=== PATIENT | female | born 1965 | race African-American/Black ===

== ENCOUNTER 2018-06-02 15:20 | Emergency (ER) | payer OTHER ==
[~2018-06-02] VITALS: Ht 167.6 cm; Wt 68.2 kg
[~2018-06-02 15:20] MED LIST: CARI350 PO; METF-446 PO; SERT100T12 PO
[2018-06-02 15:23] VITALS: BP 123/86
[2018-06-02 15:34] LABS: GLUCOSE,POINT OF CARE 123 MG/DL (70-110)
== END 2018-06-02 17:31 | disposition left against medical advice (07) ==
LOC: EMS 15:21
DX: Z43.1 Encounter for attention to gastrostomy (principal); E11.9 Type 2 diabetes mellitus without complications; I10 Essential (primary) hypertension; F17.210 Nicotine dependence, cigarettes, uncomplicated; Z53.21 Procedure and treatment not carried out due to patient leaving prior to being seen by health care provider

== ENCOUNTER 2018-09-23 13:27 | Emergency (ER) | payer OTHER ==
[~2018-09-23] VITALS: Ht 167.6 cm; Wt 80.0 kg
[2018-09-23 13:54] LABS: GLUCOSE,POINT OF CARE 88 MG/DL (70-110)
[2018-09-23] MEDS ORDERED: KETOROLAC TROMETHAMINE 10 MG TABLET PO ONE (15:00)
[2018-09-23 17:07] VITALS: BP 138/82
== END 2018-09-23 17:15 | disposition home or self-care (01) ==
LOC: EMS 13:28
DX: S01.511A Laceration without foreign body of lip, initial encounter (principal); S80.02XA Contusion of left knee, initial encounter; S20.229A Contusion of unspecified back wall of thorax, initial encounter; E11.9 Type 2 diabetes mellitus without complications; I10 Essential (primary) hypertension; F17.210 Nicotine dependence, cigarettes, uncomplicated; Z59.0 Homelessness; Z86.73 Personal history of transient ischemic attack (TIA), and cerebral infarction without residual deficits; Z79.84 Long term (current) use of oral hypoglycemic drugs; V03.99XA Pedestrian with other conveyance injured in collision with car, pick-up truck or van, unspecified whether traffic or nontraffic accident, initial encounter; Y93.89 Activity, other specified; Y92.488 Other paved roadways as the place of occurrence of the external cause; Y99.8 Other external cause status
CPT/HCPCS: 72070

== ENCOUNTER 2018-10-17 05:36 | Emergency (ER) | payer OTHER ==
[~2018-10-17] VITALS: Ht 170.2 cm; Wt 81.8 kg
[~2018-10-17 05:36] MED LIST changes: -CARI350 PO
[2018-10-17] MEDS ORDERED: GABA600T10 PO (05:42)
[2018-10-17] MEDS ORDERED: LISI1TAB9 PO (05:42)
[2018-10-17] MEDS ORDERED: SIMV20TA6 PO (05:42)
[2018-10-17 05:50] LABS: GLUCOSE,POINT OF CARE 124 MG/DL (70-110)
[2018-10-17] MEDS ORDERED: HYDROCHLOROTHIAZIDE 25 MG TABLET PO ONE (09:00)
[2018-10-17] MEDS ORDERED: LISINOPRIL 10 MG TABLET PO ONE (09:00)
[2018-10-17] MEDS ORDERED: FLUCONAZOLE 150 MG TABLET PO ONE (09:00)
[2018-10-17] MEDS ORDERED: SULFAMETHOX/TRIMETH DS 800-160 MG/TABLET PO ONE (10:00)
[2018-10-17 10:33] VITALS: BP 165/102
== END 2018-10-17 10:47 | disposition home or self-care (01) ==
LOC: EMS 05:36
DX: N76.0 Acute vaginitis (principal); N39.0 Urinary tract infection, site not specified; E11.9 Type 2 diabetes mellitus without complications; I10 Essential (primary) hypertension; F17.210 Nicotine dependence, cigarettes, uncomplicated; Z86.73 Personal history of transient ischemic attack (TIA), and cerebral infarction without residual deficits; Z59.0 Homelessness
CPT/HCPCS: 99406

== ENCOUNTER 2018-10-19 13:12 | Emergency (ER) | payer OTHER ==
[~2018-10-19] VITALS: Ht 167.6 cm; Wt 74.1 kg
[~2018-10-19 13:12] MED LIST changes: +GABA600T10 PO; +LISI1TAB9 PO; +SIMV20TA6 PO
[2018-10-19 13:13] VITALS: BP 152/98
== END 2018-10-19 13:36 | disposition left against medical advice (07) ==
LOC: EMS 13:13
DX: L08.9 Local infection of the skin and subcutaneous tissue, unspecified (principal); Z53.21 Procedure and treatment not carried out due to patient leaving prior to being seen by health care provider

== ENCOUNTER 2018-11-08 12:19 | Emergency (ER) | payer OTHER ==
[~2018-11-08] VITALS: Ht 167.6 cm; Wt 68.2 kg
[~2018-11-08 12:19] MED LIST changes: -SERT100T12 PO
[2018-11-08 12:34] VITALS: BP 131/72
[2018-11-08] MEDS ORDERED: KETOROLAC TROMETHAMINE 60 MG/2 ML VIAL IM ONE (13:00)
== END 2018-11-08 13:43 | disposition home or self-care (01) ==
LOC: EMS 12:22
DX: S93.402A Sprain of unspecified ligament of left ankle, initial encounter (principal); I10 Essential (primary) hypertension; E11.9 Type 2 diabetes mellitus without complications; F17.210 Nicotine dependence, cigarettes, uncomplicated; Z86.73 Personal history of transient ischemic attack (TIA), and cerebral infarction without residual deficits; Z59.0 Homelessness; Z79.84 Long term (current) use of oral hypoglycemic drugs; Z79.899 Other long term (current) drug therapy; X58.XXXA Exposure to other specified factors, initial encounter; Y93.89 Activity, other specified; Y92.89 Other specified places as the place of occurrence of the external cause; Y99.8 Other external cause status
CPT/HCPCS: 96372; 99283; J1885; 29515

== ENCOUNTER 2018-11-12 18:41 | Emergency (ER) | payer OTHER ==
[~2018-11-12] VITALS: Ht 167.6 cm; Wt 68.2 kg
[2018-11-12 19:18] LABS: GLUCOSE,POINT OF CARE 107 MG/DL (70-110)
[2018-11-12 20:13] LABS: GLUCOSE,POINT OF CARE 81 MG/DL (70-110)
[2018-11-12 20:19] VITALS: BP 141/85
== END 2018-11-12 20:22 | disposition home or self-care (01) ==
LOC: EMS 18:42
DX: S93.402A Sprain of unspecified ligament of left ankle, initial encounter (principal); E11.9 Type 2 diabetes mellitus without complications; I10 Essential (primary) hypertension; F17.210 Nicotine dependence, cigarettes, uncomplicated; Z86.73 Personal history of transient ischemic attack (TIA), and cerebral infarction without residual deficits; Z59.0 Homelessness; Z79.84 Long term (current) use of oral hypoglycemic drugs; W22.8XXA Striking against or struck by other objects, initial encounter; Y93.89 Activity, other specified; Y92.89 Other specified places as the place of occurrence of the external cause; Y99.8 Other external cause status
CPT/HCPCS: 29540

== ENCOUNTER 2018-12-27 10:54 | Emergency (ER) | payer OTHER ==
[~2018-12-27] VITALS: Ht 170.2 cm; Wt 70.5 kg
[2018-12-27 11:27] LABS: GLUCOSE,POINT OF CARE 90 MG/DL (70-110)
[2018-12-27] MEDS ORDERED: IBUPROFEN 600 MG TABLET PO ONE (11:30)
[2018-12-27 12:38] VITALS: BP 143/87
== END 2018-12-27 12:44 | disposition home or self-care (01) ==
LOC: EMS 10:55
DX: S93.402A Sprain of unspecified ligament of left ankle, initial encounter (principal); E11.9 Type 2 diabetes mellitus without complications; I10 Essential (primary) hypertension; Z79.84 Long term (current) use of oral hypoglycemic drugs; Z79.899 Other long term (current) drug therapy; X50.9XXA Other and unspecified overexertion or strenuous movements or postures, initial encounter; Y93.01 Activity, walking, marching and hiking; Y92.488 Other paved roadways as the place of occurrence of the external cause; Y99.8 Other external cause status
CPT/HCPCS: 29505

== ENCOUNTER 2019-04-25 14:33 | Emergency (ER) | payer OTHER ==
[~2019-04-25] VITALS: Ht 167.6 cm; Wt 63.6 kg
[2019-04-25 15:45] LABS: GLUCOSE,POINT OF CARE 113 MG/DL (70-110)
[2019-04-25 16:10] LABS: BASOPHILS % (AUTO) 0.6 % (0.0-2.0); HEMATOCRIT 45.7 % (36-46); HEMOGLOBIN 14.4 g/dL (12.0-16.0); LYMPHOCYTES % (AUTO) 33.4 % (22.0-44.0); MEAN CORPUSCULAR HEMOGLOBIN 27.2 pg (26.0-34.0); MEAN CORPUSCULAR HGB CONC 31.5 G/dL (31.0-37.0); MEAN CORPUSCULAR VOLUME 86 fL (80-100); MONOCYTES # (AUTO) 0.4 K/uL (0.1-1.0); MONOCYTES % (AUTO) 7.6 % (2.0-9.0); NEUTROPHILS # (AUTO) 3.4 K/uL (1.8-7.7); NEUTROPHILS % (AUTO) 57.4 % (40.0-70.0); PLATELET COUNT (AUTO) 232 K/uL (150-450); RED CELL DISTRIBUTION WIDTH 13.6 % (11.5-14.5)
[2019-04-25 16:25] LABS: CALCIUM, TOTAL 9.5 mg/dL (8.8-10.5); CREATININE 1.31 mg/dL (0.60-1.30)
[2019-04-25 16:31] LABS: ALBUMIN 3.5 g/dL (3.4-5.0); BILIRUBIN,TOTAL 0.4 mg/dL (0.1-1.0)
[2019-04-25 16:51] VITALS: BP 135/82
== END 2019-04-25 16:53 | disposition home or self-care (01) ==
LOC: EMS 14:33
DX: E11.40 Type 2 diabetes mellitus with diabetic neuropathy, unspecified (principal); M54.12 Radiculopathy, cervical region; I10 Essential (primary) hypertension; F17.210 Nicotine dependence, cigarettes, uncomplicated; Z86.73 Personal history of transient ischemic attack (TIA), and cerebral infarction without residual deficits; Z59.0 Homelessness; Z79.84 Long term (current) use of oral hypoglycemic drugs; Z79.899 Other long term (current) drug therapy

== ENCOUNTER 2019-07-28 07:53 | Emergency (ER) | payer OTHER ==
[~2019-07-28] VITALS: Ht 167.6 cm; Wt 72.7 kg
[~2019-07-28 07:53] MED LIST changes: +SIMV-43 PO; -SIMV20TA6 PO
[2019-07-28 07:55] VITALS: BP 170/66
[2019-07-28 08:12] LABS: GLUCOSE,POINT OF CARE 123 MG/DL (70-110)
[2019-07-28] MEDS ORDERED: IBUPROFEN 600 MG TABLET PO ONE (08:30)
== END 2019-07-28 09:20 | disposition home or self-care (01) ==
LOC: EMS 08:09
DX: M25.511 Pain in right shoulder (principal); F17.210 Nicotine dependence, cigarettes, uncomplicated; I10 Essential (primary) hypertension; E11.9 Type 2 diabetes mellitus without complications; Z86.73 Personal history of transient ischemic attack (TIA), and cerebral infarction without residual deficits; Z59.0 Homelessness; Z79.84 Long term (current) use of oral hypoglycemic drugs
CPT/HCPCS: 99406

== ENCOUNTER 2019-08-09 13:14 | Emergency (ER) | payer OTHER ==
[~2019-08-09] VITALS: Ht 170.2 cm; Wt 72.3 kg
[2019-08-09] MEDS ORDERED: IBUPROFEN 800 MG TABLET PO ONE (14:15)
[2019-08-09 14:55] VITALS: BP 166/92
== END 2019-08-09 15:00 | disposition home or self-care (01) ==
LOC: EMS 13:15
DX: M19.90 Unspecified osteoarthritis, unspecified site (principal); M25.572 Pain in left ankle and joints of left foot; M25.511 Pain in right shoulder; E11.9 Type 2 diabetes mellitus without complications; I10 Essential (primary) hypertension; F17.210 Nicotine dependence, cigarettes, uncomplicated; Z59.0 Homelessness; Z86.73 Personal history of transient ischemic attack (TIA), and cerebral infarction without residual deficits; Z79.84 Long term (current) use of oral hypoglycemic drugs; Z79.899 Other long term (current) drug therapy

== ENCOUNTER 2019-08-22 09:32 | Emergency (ER) | payer OTHER ==
[~2019-08-22] VITALS: Ht 170.2 cm; Wt 81.8 kg
[2019-08-22 12:40] VITALS: BP 209/113
[2019-08-22 14:10] LABS: GLUCOSE,POINT OF CARE 140 MG/DL (70-110)
== END 2019-08-22 13:38 | disposition home or self-care (01) ==
LOC: EMS 09:33
DX: S93.402A Sprain of unspecified ligament of left ankle, initial encounter (principal); I10 Essential (primary) hypertension; F17.210 Nicotine dependence, cigarettes, uncomplicated; E11.9 Type 2 diabetes mellitus without complications; Z86.73 Personal history of transient ischemic attack (TIA), and cerebral infarction without residual deficits; Z79.84 Long term (current) use of oral hypoglycemic drugs; Z79.899 Other long term (current) drug therapy; X58.XXXA Exposure to other specified factors, initial encounter; Y93.89 Activity, other specified; Y92.89 Other specified places as the place of occurrence of the external cause; Y99.8 Other external cause status
CPT/HCPCS: 99406

== ENCOUNTER 2019-08-28 09:56 | Emergency (ER) | payer OTHER ==
[~2019-08-28] VITALS: Ht 170.2 cm; Wt 68.2 kg
[2019-08-28 10:29] LABS: GLUCOSE,POINT OF CARE 167 MG/DL (70-110)
[2019-08-28 13:10] VITALS: BP 139/84
== END 2019-08-28 13:27 | disposition home or self-care (01) ==
LOC: EMS 09:57
DX: S93.402A Sprain of unspecified ligament of left ankle, initial encounter (principal); L29.9 Pruritus, unspecified; E11.9 Type 2 diabetes mellitus without complications; I10 Essential (primary) hypertension; F17.210 Nicotine dependence, cigarettes, uncomplicated; Z59.0 Homelessness; Z86.73 Personal history of transient ischemic attack (TIA), and cerebral infarction without residual deficits; Z79.84 Long term (current) use of oral hypoglycemic drugs; Z79.899 Other long term (current) drug therapy; X58.XXXA Exposure to other specified factors, initial encounter; Y93.89 Activity, other specified; Y92.89 Other specified places as the place of occurrence of the external cause; Y99.8 Other external cause status

== ENCOUNTER 2019-09-23 10:59 | Emergency (ER) | payer OTHER ==
[~2019-09-23] VITALS: Ht 167.6 cm; Wt 90.9 kg
[2019-09-23 11:26] LABS: GLUCOSE,POINT OF CARE 128 MG/DL (70-110)
[2019-09-23] MEDS ORDERED: IBUPROFEN 600 MG TABLET PO ONE (12:30)
[2019-09-23 12:48] VITALS: BP 132/81
== END 2019-09-23 12:51 | disposition home or self-care (01) ==
LOC: EMS 11:00
DX: M25.572 Pain in left ankle and joints of left foot (principal); E11.9 Type 2 diabetes mellitus without complications; I10 Essential (primary) hypertension; F17.210 Nicotine dependence, cigarettes, uncomplicated; Z86.73 Personal history of transient ischemic attack (TIA), and cerebral infarction without residual deficits; Z59.0 Homelessness; Z79.899 Other long term (current) drug therapy; Z98.890 Other specified postprocedural states

== ENCOUNTER 2019-10-12 03:19 | Emergency (ER) | payer OTHER ==
[~2019-10-12] VITALS: Ht 170.2 cm; Wt 68.2 kg
[2019-10-12] MEDS ORDERED: LIDOCAINE 1% 10 ML VIAL INJ ONE (03:45)
[2019-10-12] MEDS ORDERED: PERTUSS(ACELL),DIPH,TET VAC/PF 0.5 ML VIAL IM ONE (03:45)
[2019-10-12 05:29] VITALS: BP 152/88
== END 2019-10-12 05:47 | disposition home or self-care (01) ==
LOC: EMS 03:19
DX: S01.412A Laceration without foreign body of left cheek and temporomandibular area, initial encounter (principal); E11.9 Type 2 diabetes mellitus without complications; I10 Essential (primary) hypertension; F17.210 Nicotine dependence, cigarettes, uncomplicated; Z86.73 Personal history of transient ischemic attack (TIA), and cerebral infarction without residual deficits; Z59.0 Homelessness; Z79.899 Other long term (current) drug therapy; W18.39XA Other fall on same level, initial encounter; Y93.89 Activity, other specified; Y92.89 Other specified places as the place of occurrence of the external cause; Y99.8 Other external cause status
CPT/HCPCS: 12015; 70450; 72125; 90471; 90715; 99284; J3490

== ENCOUNTER 2019-10-25 07:14 | Emergency (ER) | payer OTHER ==
[~2019-10-25] VITALS: Ht 170.2 cm; Wt 68.2 kg
[2019-10-25 07:37] LABS: GLUCOSE,POINT OF CARE 96 MG/DL (70-110)
[2019-10-25] MEDS ORDERED: IBUPROFEN 600 MG TABLET PO ONE (08:15)
[2019-10-25 09:10] VITALS: BP 136/75
== END 2019-10-25 09:13 | disposition home or self-care (01) ==
LOC: EMS 07:15
DX: G89.29 Other chronic pain (principal); M25.572 Pain in left ankle and joints of left foot; E11.9 Type 2 diabetes mellitus without complications; I10 Essential (primary) hypertension; F17.210 Nicotine dependence, cigarettes, uncomplicated; Z59.0 Homelessness; Z86.73 Personal history of transient ischemic attack (TIA), and cerebral infarction without residual deficits; Z79.899 Other long term (current) drug therapy; Z79.84 Long term (current) use of oral hypoglycemic drugs; Z98.890 Other specified postprocedural states

== ENCOUNTER 2020-03-03 12:25 | Emergency (ER) | payer OTHER ==
[~2020-03-03] VITALS: Ht 175.3 cm; Wt 100.0 kg
[2020-03-03 12:26] VITALS: BP 151/90
[2020-03-03] MEDS ORDERED: FLUCONAZOLE 150 MG TABLET PO ONE (13:30)
== END 2020-03-03 14:28 | disposition home or self-care (01) ==
LOC: EMS 12:30
DX: N76.0 Acute vaginitis (principal); I10 Essential (primary) hypertension; E11.9 Type 2 diabetes mellitus without complications; F17.210 Nicotine dependence, cigarettes, uncomplicated; Z79.84 Long term (current) use of oral hypoglycemic drugs; Z79.899 Other long term (current) drug therapy; Z59.0 Homelessness

== ENCOUNTER 2020-07-03 14:41 | Emergency (ER) | payer OTHER ==
[~2020-07-03] VITALS: Ht 167.6 cm; Wt 70.5 kg
[2020-07-03 15:24] VITALS: BP 142/87
== END 2020-07-03 15:41 | disposition home or self-care (01) ==
LOC: EMS 14:43
DX: N76.0 Acute vaginitis (principal); I10 Essential (primary) hypertension; Z79.899 Other long term (current) drug therapy

== ENCOUNTER 2021-02-08 13:00 | Emergency (ER) | payer OTHER ==
[~2021-02-08] VITALS: Ht 167.6 cm; Wt 68.2 kg
[2021-02-08 13:03] VITALS: BP 138/73
[2021-02-08] MEDS ORDERED: ACETAMINOPHEN 325 MG TABLET PO ONE (13:30)
== END 2021-02-08 13:52 | disposition home or self-care (01) ==
LOC: EMS 13:04
DX: B85.2 Pediculosis, unspecified (principal); M79.673 Pain in unspecified foot; E11.9 Type 2 diabetes mellitus without complications; I10 Essential (primary) hypertension; F17.210 Nicotine dependence, cigarettes, uncomplicated; Z59.0 Homelessness; Z79.84 Long term (current) use of oral hypoglycemic drugs; Z86.73 Personal history of transient ischemic attack (TIA), and cerebral infarction without residual deficits
CPT/HCPCS: 99282; Z7502; Z7610

== ENCOUNTER 2021-04-09 11:43 | Emergency (ER) | payer OTHER ==
[~2021-04-09] VITALS: Ht 167.6 cm; Wt 68.2 kg
[2021-04-09 12:01] VITALS: BP 151/107
== END 2021-04-09 12:59 | disposition home or self-care (01) ==
LOC: EMS 11:47
DX: L25.9 Unspecified contact dermatitis, unspecified cause (principal); E11.9 Type 2 diabetes mellitus without complications; I10 Essential (primary) hypertension; F17.210 Nicotine dependence, cigarettes, uncomplicated; Z59.0 Homelessness; Z79.84 Long term (current) use of oral hypoglycemic drugs
CPT/HCPCS: 99283; Z7502

== ENCOUNTER 2021-04-14 10:49 | Emergency (ER) | payer OTHER ==
[~2021-04-14] VITALS: Ht 167.6 cm; Wt 81.8 kg
[2021-04-14 10:50] VITALS: BP 152/94
== END 2021-04-14 12:17 | disposition home or self-care (01) ==
LOC: EMS 10:49
DX: R21 Rash and other nonspecific skin eruption (principal); E11.9 Type 2 diabetes mellitus without complications; E78.00 Pure hypercholesterolemia, unspecified; I10 Essential (primary) hypertension; F17.210 Nicotine dependence, cigarettes, uncomplicated; Z59.0 Homelessness; Z79.84 Long term (current) use of oral hypoglycemic drugs; Z79.899 Other long term (current) drug therapy
CPT/HCPCS: 99282; Z7502

== ENCOUNTER 2021-06-06 09:09 | Emergency (ER) | payer OTHER ==
[~2021-06-06] VITALS: Ht 167.6 cm; Wt 68.2 kg
[2021-06-06 09:21] VITALS: BP 152/85
[2021-06-06 10:32] LABS: GLUCOMETER DEV NAME(LOC) ERT.5; GLUCOSE,POINT OF CARE 168 MG/DL (70-110)
== END 2021-06-06 10:38 | disposition home or self-care (01) ==
LOC: EMS 09:22
DX: N76.0 Acute vaginitis (principal); I10 Essential (primary) hypertension; E11.9 Type 2 diabetes mellitus without complications; F17.210 Nicotine dependence, cigarettes, uncomplicated; Z59.0 Homelessness; Z79.84 Long term (current) use of oral hypoglycemic drugs
CPT/HCPCS: 82962; 99283

== ENCOUNTER 2021-08-11 11:00 | Emergency (ER) | payer OTHER ==
[~2021-08-11] VITALS: Ht 167.6 cm; Wt 68.2 kg
[2021-08-11 11:53] VITALS: BP 148/77
[2021-08-12 11:03] LABS: GLUCOSE,POINT OF CARE 168 MG/DL (70-110)
== END 2021-08-11 12:45 | disposition home or self-care (01) ==
LOC: EMS 11:00 → EDUNIT# 11:00 → EMS 12:45
DX: S30.860A Insect bite (nonvenomous) of lower back and pelvis, initial encounter (principal); I10 Essential (primary) hypertension; F17.210 Nicotine dependence, cigarettes, uncomplicated; Z79.84 Long term (current) use of oral hypoglycemic drugs; Z79.899 Other long term (current) drug therapy; W57.XXXA Bitten or stung by nonvenomous insect and other nonvenomous arthropods, initial encounter; Y93.89 Activity, other specified; Y92.89 Other specified places as the place of occurrence of the external cause; Y99.8 Other external cause status
CPT/HCPCS: 82962; 99282; 99406

== ENCOUNTER 2021-08-28 09:00 | Emergency (ER) | payer OTHER ==
[~2021-08-28] VITALS: Ht 165.1 cm; Wt 81.8 kg
[2021-08-28 10:09] LABS: CALCIUM, TOTAL 9.9 mg/dL (8.8-10.5); CREATININE 1.96 mg/dL (0.60-1.30); POTASSIUM 4.3 mmol/L (3.5-5.1)
[2021-08-28 10:14] LABS: ALBUMIN 3.8 g/dL (3.4-5.0); BILIRUBIN,TOTAL 0.3 mg/dL (0.1-1.0); TOTAL PROTEIN, SERUM 7.7 g/dL (6.4-8.2)
[2021-08-28 10:19] LABS: LACTIC ACID 0.9 mmol/L (0.4-2.0)
[2021-08-28 11:07] LABS: BASOPHILS % (AUTO) 0.6 % (0.0-2.0); EOSINOPHILS % (AUTO) 0.5 % (1.0-6.0); HEMATOCRIT 43.8 % (36-46); HEMOGLOBIN 14.9 g/dL (12.0-16.0); LYMPHOCYTES # (AUTO) 1.7 K/uL (1.0-4.8); LYMPHOCYTES % (AUTO) 21.5 % (22.0-44.0); MEAN CORPUSCULAR HEMOGLOBIN 29.1 pg (26.0-34.0); MEAN CORPUSCULAR HGB CONC 34.1 G/dL (31.0-37.0); MEAN CORPUSCULAR VOLUME 86 fL (80-100); MONOCYTES # (AUTO) 0.4 K/uL (0.1-1.0); MONOCYTES % (AUTO) 5.3 % (2.0-9.0); NEUTROPHILS # (AUTO) 5.7 K/uL (1.8-7.7); NEUTROPHILS % (AUTO) 72.1 % (40.0-70.0); RED BLOOD CELL COUNT(AUTO) 5.12 MIL/uL (4.00-5.20); RED CELL DISTRIBUTION WIDTH 14.8 % (11.5-14.5)
[2021-08-28 11:15] LABS: PLATELET COUNT (AUTO) 203 K/uL (150-450)
[2021-08-28 13:47] VITALS: BP 145/70
[2021-08-28 14:15] LABS: APPEARANCE,URINE CLEAR (CLEAR); BILIRUBIN,URINE NEGATIVE (NEGATIVE); GLUCOSE, URINE (UA) NEGATIVE (NEGATIVE); KETONES,URINE NEGATIVE (NEGATIVE); LEUKOCYTE ESTERASE ,URINE NEGATIVE (NEGATIVE); NITRATE,URINE NEGATIVE (NEGATIVE); OCCULT BLOOD,URINE NEGATIVE (NEGATIVE); PROTEIN,URINE NEGATIVE (NEGATIVE)
[2021-08-28 14:23] LABS: BACTERIA,URINE None Seen /HPF (None Seen); RBC,URINE None Seen /HPF (0-2); SQUAMOUS EPITHELIAL CELL,UR Moderate /LPF (None Seen); WBC,URINE None Seen /HPF (0-5); YEAST,URINE Rare /HPF (None Seen)
== END 2021-08-28 14:29 | disposition home or self-care (01) ==
LOC: EMS 09:03
DX: R10.31 Right lower quadrant pain (principal); I10 Essential (primary) hypertension; E11.9 Type 2 diabetes mellitus without complications; Z79.899 Other long term (current) drug therapy; F17.210 Nicotine dependence, cigarettes, uncomplicated
CPT/HCPCS: 74176; 80053; 81001; 83605; 83690; 85025; 99284

== ENCOUNTER 2021-09-18 13:37 | Emergency (ER) | payer OTHER ==
[~2021-09-18] VITALS: Ht 167.6 cm; Wt 68.2 kg
[2021-09-18 13:40] VITALS: BP 160/93
[2021-09-18 14:55] LABS: CALCIUM, TOTAL 9.4 mg/dL (8.8-10.5); CREATININE 2.36 mg/dL (0.60-1.30); POTASSIUM 3.8 mmol/L (3.5-5.1)
[2021-09-18 15:01] LABS: ALBUMIN 3.6 g/dL (3.4-5.0); BILIRUBIN,TOTAL 0.4 mg/dL (0.1-1.0); TOTAL PROTEIN, SERUM 8.4 g/dL (6.4-8.2)
[2021-09-18 15:30] LABS: BASOPHILS % (AUTO) 0.6 % (0.0-2.0); EOSINOPHILS % (AUTO) 0.1 % (1.0-6.0); HEMATOCRIT 51.8 % (36-46); HEMOGLOBIN 16.9 g/dL (12.0-16.0); LYMPHOCYTES # (AUTO) 1.3 K/uL (1.0-4.8); LYMPHOCYTES % (AUTO) 18.6 % (22.0-44.0); MEAN CORPUSCULAR HGB CONC 32.6 G/dL (31.0-37.0); MEAN CORPUSCULAR VOLUME 86 fL (80-100); MONOCYTES # (AUTO) 0.7 K/uL (0.1-1.0); MONOCYTES % (AUTO) 9.8 % (2.0-9.0); NEUTROPHILS # (AUTO) 4.8 K/uL (1.8-7.7); NEUTROPHILS % (AUTO) 70.9 % (40.0-70.0); PLATELET COUNT (AUTO) 202 K/uL (150-450); RED BLOOD CELL COUNT(AUTO) 6.02 MIL/uL (4.00-5.20); RED CELL DISTRIBUTION WIDTH 13.7 % (11.5-14.5)
[2021-09-18 16:01] LABS: PROTHROMBIN TIME 10.6 SEC (9.4-11.6)
[2021-09-18] MEDS ORDERED: ASPIRIN 325 MG TABLET PO ONE (16:15)
== END 2021-09-18 17:40 | disposition left against medical advice (07) ==
LOC: EMS 13:37
DX: R07.9 Chest pain, unspecified (principal); F17.210 Nicotine dependence, cigarettes, uncomplicated; E11.9 Type 2 diabetes mellitus without complications; Z79.84 Long term (current) use of oral hypoglycemic drugs; Z86.73 Personal history of transient ischemic attack (TIA), and cerebral infarction without residual deficits
CPT/HCPCS: 71045; 80053; 82550; 83880; 84484; 85025; 85610; 85730; 93005; 99285; 36415-L1; 36415-TC

== ENCOUNTER 2021-12-09 14:04 | Emergency (ER) | payer OTHER ==
[~2021-12-09] VITALS: Ht 175.3 cm; Wt 68.2 kg
[2021-12-09 14:24] VITALS: BP 180/96
[2021-12-09] MEDS ORDERED: FLUCONAZOLE 150 MG TABLET PO ONE (15:15)
== END 2021-12-09 15:49 | disposition home or self-care (01) ==
LOC: EMS 14:04
DX: N76.0 Acute vaginitis (principal); E11.9 Type 2 diabetes mellitus without complications; I10 Essential (primary) hypertension; F17.210 Nicotine dependence, cigarettes, uncomplicated; Z59.00 Homelessness unspecified; Z86.73 Personal history of transient ischemic attack (TIA), and cerebral infarction without residual deficits; Z79.84 Long term (current) use of oral hypoglycemic drugs
CPT/HCPCS: 82962; 99283

== ENCOUNTER 2021-12-19 12:36 | Emergency (ER) | payer OTHER ==
[~2021-12-19] VITALS: Ht 167.6 cm; Wt 72.7 kg
[2021-12-19 17:26] LABS: APPEARANCE,URINE CLEAR (CLEAR); BILIRUBIN,URINE NEGATIVE (NEGATIVE); GLUCOSE, URINE (UA) NEGATIVE (NEGATIVE); KETONES,URINE NEGATIVE (NEGATIVE); LEUKOCYTE ESTERASE ,URINE LARGE (NEGATIVE); NITRATE,URINE NEGATIVE (NEGATIVE); OCCULT BLOOD,URINE TRACE (NEGATIVE); PH,URINE 5.5 (5.0-8.0); PROTEIN,URINE TRACE mg/dL (NEGATIVE); SPECIFIC GRAVITIY, URINE 1.016 (1.003-1.030); UROBILINOGEN,URINE <=1.0 mg/dL (<=1.0)
[2021-12-19 17:37] LABS: BACTERIA,URINE Few /HPF (None Seen); RBC,URINE None Seen /HPF (0-2); SQUAMOUS EPITHELIAL CELL,UR Few /LPF (None Seen)
[2021-12-19 18:12] VITALS: BP 161/91
[2021-12-19] MEDS ORDERED: METF-446 PO (18:12)
== END 2021-12-19 18:22 | disposition home or self-care (01) ==
LOC: EMS 12:40
DX: L29.2 Pruritus vulvae (principal); E11.9 Type 2 diabetes mellitus without complications; I10 Essential (primary) hypertension; F17.210 Nicotine dependence, cigarettes, uncomplicated; Z86.73 Personal history of transient ischemic attack (TIA), and cerebral infarction without residual deficits; Z59.00 Homelessness unspecified; Z90.89 Acquired absence of other organs; Z79.84 Long term (current) use of oral hypoglycemic drugs
CPT/HCPCS: 81001; 87086; 99283; 99284

== ENCOUNTER 2022-01-04 12:32 | Emergency (ER) | payer OTHER ==
[~2022-01-04] VITALS: Ht 167.6 cm; Wt 68.2 kg
[2022-01-04 12:40] VITALS: BP 137/89
[2022-01-04] MEDS ORDERED: NYSTATIN/TRIAMCINOLONE 15 GM OINTMENT TP ONE (16:15)
== END 2022-01-04 16:22 | disposition home or self-care (01) ==
LOC: EMS 12:32
DX: B35.4 Tinea corporis (principal); B35.6 Tinea cruris; E11.9 Type 2 diabetes mellitus without complications; I10 Essential (primary) hypertension; F17.210 Nicotine dependence, cigarettes, uncomplicated; Z86.79 Personal history of other diseases of the circulatory system; Z87.19 Personal history of other diseases of the digestive system; Z90.49 Acquired absence of other specified parts of digestive tract; Z98.890 Other specified postprocedural states; Z59.00 Homelessness unspecified
CPT/HCPCS: 82962; 99283

== ENCOUNTER 2022-01-22 15:02 | Emergency (ER) | payer OTHER ==
[~2022-01-22] VITALS: Ht 167.6 cm; Wt 52.3 kg
[2022-01-22] MEDS ORDERED: LISI-657 PO (15:42)
[2022-01-22] MEDS ORDERED: PERM60CR19 TP (15:42)
[2022-01-22] MEDS ORDERED: KETOROLAC TROMETHAMINE 10 MG TABLET PO ONE (15:45)
[2022-01-22] MEDS ORDERED: HydrOXYzine PAMOATE 25 MG CAPSULE PO ONE (15:45)
[2022-01-22 16:32] VITALS: BP 150/84
== END 2022-01-22 16:51 | disposition home or self-care (01) ==
LOC: EMS 15:02
DX: M79.671 Pain in right foot (principal); M79.672 Pain in left foot; I10 Essential (primary) hypertension; R21 Rash and other nonspecific skin eruption; F17.210 Nicotine dependence, cigarettes, uncomplicated; Z76.0 Encounter for issue of repeat prescription; Z90.89 Acquired absence of other organs; Z59.00 Homelessness unspecified; Z79.899 Other long term (current) drug therapy
CPT/HCPCS: 99283

== ENCOUNTER 2022-02-09 12:13 | Emergency (ER) | payer OTHER ==
[~2022-02-09] VITALS: Ht 167.6 cm; Wt 68.2 kg
[~2022-02-09 12:13] MED LIST changes: +LISI-657 PO; +PERM60CR19 TP
[2022-02-09] MEDS ORDERED: GABA600T10 PO (13:18)
[2022-02-09] MEDS ORDERED: PERM60CR19 TP (13:18)
[2022-02-09] MEDS ORDERED: DIPH25CA53 PO (13:18)
[2022-02-09] MEDS ORDERED: MICO45CR44 VG (13:18)
[2022-02-09] MEDS ORDERED: METF-1211 PO (13:18)
[2022-02-09] MEDS ORDERED: LISI-657 PO (13:18)
[2022-02-09 13:21] VITALS: BP 188/112
[2022-02-09 13:26] LABS: GLUCOSE,POINT OF CARE 99 MG/DL (70-110)
[2022-02-09] MEDS ORDERED: LISINOPRIL 10 MG TABLET PO ONE (13:30)
[2022-02-09] MEDS ORDERED: IVERMECTIN 3 MG TABLET PO ONE (13:30)
== END 2022-02-09 13:49 | disposition home or self-care (01) ==
LOC: EMS 12:13
DX: B86 Scabies (principal); N76.0 Acute vaginitis; I10 Essential (primary) hypertension; Z86.73 Personal history of transient ischemic attack (TIA), and cerebral infarction without residual deficits; E11.9 Type 2 diabetes mellitus without complications; Z79.899 Other long term (current) drug therapy; F17.210 Nicotine dependence, cigarettes, uncomplicated; Z59.00 Homelessness unspecified
CPT/HCPCS: 82962; 99283

== ENCOUNTER 2022-03-03 09:54 | Emergency (ER) | payer OTHER ==
[~2022-03-03] VITALS: Ht 165.1 cm; Wt 68.2 kg
[~2022-03-03 09:54] MED LIST changes: +DIPH25CA53 PO; -LISI1TAB9 PO; +METF-1211 PO; -METF-446 PO; +MICO45CR44 VG
[2022-03-03 11:47] VITALS: BP 158/82
[2022-03-03] MEDS ORDERED: LISI-657 PO (11:48)
[2022-03-03] MEDS ORDERED: FLUCONAZOLE 150 MG TABLET PO ONE (12:00)
[2022-03-03] MEDS ORDERED: DIPH25CA85 PO (12:12)
== END 2022-03-03 12:42 | disposition home or self-care (01) ==
LOC: EMS 09:57
DX: N76.0 Acute vaginitis (principal); I10 Essential (primary) hypertension; Z76.0 Encounter for issue of repeat prescription; Z79.899 Other long term (current) drug therapy; Z59.00 Homelessness unspecified
CPT/HCPCS: 99283

== ENCOUNTER 2022-03-17 11:54 | Emergency (ER) | payer OTHER ==
[~2022-03-17] VITALS: Ht 165.1 cm; Wt 63.6 kg
[~2022-03-17 11:54] MED LIST changes: +DIPH25CA85 PO
[2022-03-17] MEDS ORDERED: GYNEVAG VG (19:01)
[2022-03-17] MEDS ORDERED: HYDR-4527 PO (19:03)
[2022-03-17 19:21] VITALS: BP 136/81
== END 2022-03-17 19:23 | disposition home or self-care (01) ==
LOC: EMS 11:54
DX: N76.0 Acute vaginitis (principal); F17.210 Nicotine dependence, cigarettes, uncomplicated; I10 Essential (primary) hypertension; Z90.49 Acquired absence of other specified parts of digestive tract; Z86.73 Personal history of transient ischemic attack (TIA), and cerebral infarction without residual deficits
CPT/HCPCS: 99283; Z7502

== ENCOUNTER 2022-06-04 11:41 | Emergency (ER) | payer OTHER ==
[~2022-06-04] VITALS: Ht 167.6 cm; Wt 68.2 kg
[~2022-06-04 11:41] MED LIST changes: -DIPH25CA53 PO; +GYNEVAG VG; +HYDR-4527 PO; -MICO45CR44 VG
[2022-06-04] MEDS ORDERED: FLUCONAZOLE 150 MG TABLET PO ONE (14:15)
[2022-06-04] MEDS ORDERED: METF-1211 PO (14:33)
[2022-06-04] MEDS ORDERED: LISI-657 PO (14:33)
[2022-06-04 14:45] VITALS: BP 146/88
== END 2022-06-04 15:10 | disposition home or self-care (01) ==
LOC: EMS 12:11
DX: B35.6 Tinea cruris (principal); F17.210 Nicotine dependence, cigarettes, uncomplicated; I10 Essential (primary) hypertension; Z76.0 Encounter for issue of repeat prescription; Z86.73 Personal history of transient ischemic attack (TIA), and cerebral infarction without residual deficits; Z90.49 Acquired absence of other specified parts of digestive tract
CPT/HCPCS: 99283

== ENCOUNTER 2022-06-29 12:38 | Emergency (ER) | payer OTHER ==
[~2022-06-29] VITALS: Ht 167.6 cm; Wt 75.0 kg
[~2022-06-29 12:38] MED LIST changes: -DIPH25CA85 PO; -GABA600T10 PO; -GYNEVAG VG; -HYDR-4527 PO; -PERM60CR19 TP; -SIMV-43 PO
[2022-06-29] MEDS ORDERED: ACETAMINOPHEN 325 MG TABLET PO ONE (15:30)
[2022-06-29] MEDS ORDERED: LIDOCAINE/PF 1% 2 ML VIAL IM ONE (16:00)
[2022-06-29] MEDS ORDERED: DOXYCYCLINE HYCLATE 100 MG TABLET PO ONE (16:00)
[2022-06-29] MEDS ORDERED: FLUCONAZOLE 150 MG TABLET PO ONE (16:00)
[2022-06-29] MEDS ORDERED: CefTRIAXone SODIUM 1 GM/VIAL IM ONE (16:00)
[2022-06-29 17:42] LABS: APPEARANCE,URINE CLEAR (CLEAR); BILIRUBIN,URINE NEGATIVE (NEGATIVE); GLUCOSE, URINE (UA) NEGATIVE (NEGATIVE); KETONES,URINE NEGATIVE (NEGATIVE); LEUKOCYTE ESTERASE ,URINE NEGATIVE (NEGATIVE); NITRATE,URINE NEGATIVE (NEGATIVE); OCCULT BLOOD,URINE TRACE (NEGATIVE); PH,URINE 6.5 (5.0-8.0); PROTEIN,URINE 30-70 mg/dL (NEGATIVE); SPECIFIC GRAVITIY, URINE 1.013 (1.003-1.030); UROBILINOGEN,URINE <=1.0 mg/dL (<=1.0)
[2022-06-29 18:07] LABS: AMORPHOUS SEDIMENT,UR Few /LPF (None Seen); BACTERIA,URINE None Seen /HPF (None Seen); SQUAMOUS EPITHELIAL CELL,UR Moderate /LPF (None Seen)
[2022-06-29] MEDS ORDERED: DOXY-354 PO (18:40)
[2022-06-29 18:52] VITALS: BP 148/95
== END 2022-06-29 18:54 | disposition home or self-care (01) ==
LOC: EMS 12:38
DX: A64 Unspecified sexually transmitted disease (principal); I10 Essential (primary) hypertension; F17.210 Nicotine dependence, cigarettes, uncomplicated; F10.90 Alcohol use, unspecified, uncomplicated; Z90.49 Acquired absence of other specified parts of digestive tract; Z59.00 Homelessness unspecified; Z98.890 Other specified postprocedural states
CPT/HCPCS: 99283; 81001; 87210; 87491; 87591; 96372; J0696; J3490

== ENCOUNTER 2023-03-23 12:13 | Emergency (ER) | payer OTHER ==
[~2023-03-23] VITALS: Ht 167.6 cm; Wt 68.2 kg
[~2023-03-23 12:13] MED LIST changes: +ASPI81TA87 PO; +ATOR20TA PO; +CIPR250T6 PO; +FURO-152 PO; +GYNEVAG VG; -LISI-657 PO; +LOSA-382 PO; -METF-1211 PO; +METO25TA3 PO; +METO25XL PO; +SPIR50TA27 PO
[2023-03-23 12:22] VITALS: TEMP 98.2
[2023-03-23 16:37] LABS: APPEARANCE,URINE HAZY (CLEAR); BILIRUBIN,URINE NEGATIVE (NEGATIVE); GLUCOSE, URINE (UA) NEGATIVE (NEGATIVE); KETONES,URINE NEGATIVE (NEGATIVE); LEUKOCYTE ESTERASE ,URINE SMALL (NEGATIVE); NITRATE,URINE NEGATIVE (NEGATIVE); OCCULT BLOOD,URINE NEGATIVE (NEGATIVE); PH,URINE 5.5 (5.0-8.0); PROTEIN,URINE TRACE mg/dL (NEGATIVE); SPECIFIC GRAVITIY, URINE 1.013 (1.003-1.030); UROBILINOGEN,URINE <=1.0 mg/dL (<=1.0)
[2023-03-23 16:48] LABS: BACTERIA,URINE Few /HPF (None Seen); RBC,URINE 0-2 /HPF (0-2); SQUAMOUS EPITHELIAL CELL,UR Few /LPF (None Seen)
[2023-03-23] MEDS ORDERED: AMOX500C2 PO (16:59)
[2023-03-23] MEDS ORDERED: ASPI-1450 PO (17:00)
[2023-03-23 17:26] VITALS: BP 141/89; PULSE 65; RESP 18
== END 2023-03-23 17:43 | disposition home or self-care (01) ==
LOC: EMS 12:15
DX: N39.0 Urinary tract infection, site not specified (principal); E11.9 Type 2 diabetes mellitus without complications; I10 Essential (primary) hypertension; F17.210 Nicotine dependence, cigarettes, uncomplicated; Z76.0 Encounter for issue of repeat prescription; Z59.00 Homelessness unspecified; Z90.49 Acquired absence of other specified parts of digestive tract; Z98.890 Other specified postprocedural states
CPT/HCPCS: 81001; 87086; 87186; 99283

== ENCOUNTER 2023-06-25 09:04 | Emergency (ER) | payer OTHER ==
[~2023-06-25] VITALS: Ht 167.6 cm; Wt 68.2 kg
[~2023-06-25 09:04] MED LIST changes: +AMLO-258 PO; -CIPR250T6 PO; -FURO-152 PO; -GYNEVAG VG; -METO25TA3 PO; -METO25XL PO; -SPIR50TA27 PO
[2023-06-25 09:10] VITALS: TEMP 98.4
[2023-06-25 10:00] VITALS: BP 160/90; PULSE 67; RESP 14
== END 2023-06-25 10:28 | disposition home or self-care (01) ==
LOC: EMS 09:09
DX: S00.80XD Unspecified superficial injury of other part of head, subsequent encounter (principal); E11.9 Type 2 diabetes mellitus without complications; I10 Essential (primary) hypertension; F17.210 Nicotine dependence, cigarettes, uncomplicated; F14.90 Cocaine use, unspecified, uncomplicated; Z48.02 Encounter for removal of sutures; Z59.00 Homelessness unspecified; Z90.49 Acquired absence of other specified parts of digestive tract; Z98.890 Other specified postprocedural states; X58.XXXD Exposure to other specified factors, subsequent encounter
CPT/HCPCS: 82962; 99282

== ENCOUNTER 2023-10-17 03:43 | Inpatient (IN) | payer OTHER ==
[~2023-10-17] VITALS: Ht 167.6 cm; Wt 74.7 kg
[~2023-10-17 03:43] MED LIST changes: +AMLO-257 PO; +CARV6 PO; +HYDR50TA36 PO; +ISOS20TA9 PO; +LEVO750T68 PO
[2023-10-17] MEDS: IPRATROPIUM BROMIDE 0.5 MG/2.5 ML NEB SOLUTION NEB ONE (04:46)
[2023-10-17] MEDS: ALBUTEROL SULFATE 2.5 MG/0.5 ML NEB SOLUTION NEB ONE (04:46)
[2023-10-17 04:50] VITALS: PULSE 103; RESP 40; O2SAT 89
[2023-10-17] MEDS: HydrALAZINE HCL 20 MG/ML VIAL IVP ONE (04:55)
[2023-10-17 05:05] VITALS: PULSE 106; RESP 40; O2SAT 93
[2023-10-17 05:10] VITALS: PULSE 104; RESP 43; O2SAT 98
[2023-10-17 05:11] LABS: EOSINOPHILS % (AUTO) 1.3 % (1.0-6.0); HEMATOCRIT 47.1 % (36-46); HEMOGLOBIN 15.4 g/dL (12.0-16.0); LYMPHOCYTES # (AUTO) 2.2 K/uL (1.0-4.8); MEAN CORPUSCULAR HEMOGLOBIN 28.4 pg (26.0-34.0); MEAN CORPUSCULAR HGB CONC 32.7 G/dL (31.0-37.0); MEAN CORPUSCULAR VOLUME 87 fL (80-100); MONOCYTES # (AUTO) 0.4 K/uL (0.1-1.0); MONOCYTES % (AUTO) 5.7 % (2.0-9.0); NEUTROPHILS # (AUTO) 4.9 K/uL (1.8-7.7); PLATELET COUNT (AUTO) 269 K/uL (150-450); RED BLOOD CELL COUNT(AUTO) 5.43 MIL/uL (4.00-5.20); RED CELL DISTRIBUTION WIDTH 14.4 % (11.5-14.5); WHITE BLOOD COUNT (AUTO) 7.7 K/uL (4.5-11.0)
[2023-10-17 05:14] LABS: CALCIUM, TOTAL 10.2 mg/dL (8.8-10.5); CREATININE 2.8 mg/dL (0.60-1.30)
[2023-10-17] MEDS: FUROSEMIDE 20 MG/2 ML VIAL IVP ONE (05:22)
[2023-10-17] MEDS: NITROGLYCERIN 0.4 MG SUBLINGUAL TABLET #25 SL ONE (05:22)
[2023-10-17] MEDS: NITROGLYCERIN 50 MG/D5% WATER 250 ML IV PRN (05:22)
[2023-10-17 05:32] LABS: TROPONIN I-HIGH SENSITIVITY 54 ng/L (<51)
[2023-10-17 05:39] LABS: ALBUMIN 4.1 g/dL (3.4-5.0); BILIRUBIN,TOTAL 0.5 mg/dL (0.1-1.0); TOTAL PROTEIN, SERUM 8.2 g/dL (6.4-8.2)
[2023-10-17] MEDS ORDERED: ACETAMINOPHEN 325 MG TABLET PO PRN ×2 (05:45→15:45)
[2023-10-17] MEDS ORDERED: ONDANSETRON HCL 4 MG/2 ML VIAL IVP PRN ×2 (05:45→15:45)
[2023-10-17] MEDS: CefTRIAXone 1 GM/DEXTROSE 50 ML IV ONE (06:16)
[2023-10-17] MEDS: AZITHROMYCIN 500 MG/NS 250 ML IV ONE (06:16)
[2023-10-17] MEDS: 0.9% SODIUM CHLORIDE 10 ML SYRINGE IVP PRN (06:17)
[2023-10-17 06:33] LABS: INFLUENZA A-RTPCR,COMBO NEGATIVE (NEGATIVE); INFLUENZA B-RTPCR,COMBO NEGATIVE (NEGATIVE); RESPIRATORY SYNCYTIAL VRS-PCR NEGATIVE (NEGATIVE); SARS COVID19 RTPCR, COMBO NEGATIVE (NEGATIVE)
[2023-10-17 06:58] LABS: TROPONIN I-HIGH SENSITIVITY 49 ng/L (<51)
[2023-10-17] MEDS ORDERED: MORPHINE SULFATE 2 MG/ML SYRINGE IVP PRN (15:45)
[2023-10-17] MEDS ORDERED: IPRATROPIUM BROMIDE 0.5 MG/2.5 ML NEB SOLUTION NEB PRN (15:45)
[2023-10-17] MEDS ORDERED: ALBUTEROL SULFATE 2.5 MG/0.5 ML NEB SOLUTION NEB PRN (15:45)
[2023-10-17] MEDS ORDERED: ZOLPIDEM TARTRATE 5 MG TABLET PO PRN (15:45)
[2023-10-17] MEDS ORDERED: HYDROCODONE/ACETAMINOPHEN 5-325 MG TABLET PO PRN (15:45)
[2023-10-17] MEDS ORDERED: MAGNESIUM HYDROXIDE SUSPENSION 30 ML UDCUP PO PRN (15:45)
[2023-10-17] MEDS ORDERED: BISACODYL 10 MG RECTAL RECTAL SUPPOSITORY PR PRN (15:45)
[2023-10-17] MEDS: CefTRIAXone 1 GM/DEXTROSE 50 ML IV SCH (16:39)
[2023-10-17] MEDS: HEPARIN SODIUM,PORCINE 5,000 UNITS/ML VIAL SQ SCH (16:40)
[2023-10-17] MEDS: ISOSORBIDE DINITRATE 20 MG TABLET PO SCH (16:40)
[2023-10-17] MEDS: HydrALAZINE HCL 50 MG TABLET PO SCH (16:40)
[2023-10-17 16:43] LABS: APPEARANCE,URINE CLEAR (CLEAR); BILIRUBIN,URINE NEGATIVE (NEGATIVE); COLOR,URINE COLORLESS (YELLOW); GLUCOSE, URINE (UA) NEGATIVE (NEGATIVE); KETONES,URINE NEGATIVE (NEGATIVE); LEUKOCYTE ESTERASE ,URINE NEGATIVE (NEGATIVE); NITRATE,URINE NEGATIVE (NEGATIVE); OCCULT BLOOD,URINE NEGATIVE (NEGATIVE); PROTEIN,URINE NEGATIVE (NEGATIVE); UROBILINOGEN,URINE <=1.0 mg/dL (<=1.0)
[2023-10-17] MEDS: NiCARDipine HCL 25 MG in SODIUM CHLORIDE 0.9% 240 ML IV PRN (16:47)
[2023-10-17 16:50] LABS: ALCOHOL, URINE DRUG SCREEN NEGATIVE (NEGATIVE); AMPHET/METH SCREEN,URINE NEGATIVE (NEGATIVE); BARBITURATE SCREEN, URINE NEGATIVE (NEGATIVE); BENZODIAZEPINES SCREEN,URINE NEGATIVE (NEGATIVE); CANNABINOID SCREEN,URINE NEGATIVE (NEGATIVE); COCAINE SCREEN,URINE POSITIVE (NEGATIVE); METHADONE SCREEN, URINE NEGATIVE (NEGATIVE); OPIATE SCREEN,URINE NEGATIVE (NEGATIVE); PHENCYCLIDINE SCREEN,URINE NEGATIVE (NEGATIVE)
[2023-10-17] MEDS: AZITHROMYCIN 500 MG/NS 250 ML IV SCH (16:51)
[2023-10-17 20:00] VITALS: BP 146/78; PULSE 78; RESP 14; TEMP 98.3
[2023-10-17] MEDS: LOSARTAN POTASSIUM 50 MG TABLET PO SCH (20:44)
[2023-10-17] MEDS: CARVEDILOL 6.25 MG TABLET PO SCH (20:44)
[2023-10-18] VITALS: BP 140/75; PULSE 78; RESP 26; TEMP 98.5
[2023-10-18 04:00] VITALS: BP 105/48; PULSE 64; RESP 14; TEMP 98.1
[2023-10-18 06:40] LABS: BASOPHILS % (AUTO) 1.5 % (0.0-2.0); HEMATOCRIT 44.6 % (36-46); HEMOGLOBIN 14.6 g/dL (12.0-16.0); LYMPHOCYTES # (AUTO) 1.5 K/uL (1.0-4.8); LYMPHOCYTES % (AUTO) 19.6 % (22.0-44.0); MEAN CORPUSCULAR HEMOGLOBIN 28.3 pg (26.0-34.0); MEAN CORPUSCULAR HGB CONC 32.8 G/dL (31.0-37.0); MEAN CORPUSCULAR VOLUME 86 fL (80-100); MONOCYTES # (AUTO) 0.5 K/uL (0.1-1.0); MONOCYTES % (AUTO) 7.2 % (2.0-9.0); NEUTROPHILS # (AUTO) 5.3 K/uL (1.8-7.7); NEUTROPHILS % (AUTO) 70.7 % (40.0-70.0); PLATELET COUNT (AUTO) 260 K/uL (150-450); RED BLOOD CELL COUNT(AUTO) 5.17 MIL/uL (4.00-5.20); RED CELL DISTRIBUTION WIDTH 13.9 % (11.5-14.5); WHITE BLOOD COUNT (AUTO) 7.4 K/uL (4.5-11.0)
[2023-10-18 06:56] LABS: ALBUMIN 3.3 g/dL (3.4-5.0); BILIRUBIN,TOTAL 0.6 mg/dL (0.1-1.0); CALCIUM, TOTAL 9.3 mg/dL (8.8-10.5); CREATININE 2.13 mg/dL (0.60-1.30); POTASSIUM 4.2 mmol/L (3.5-5.1); TOTAL PROTEIN, SERUM 6.8 g/dL (6.4-8.2)
[2023-10-18 08:00] VITALS: BP 138/69; PULSE 70; PULSE 71; RESP 12; TEMP 98
[2023-10-18] MEDS: PANTOPRAZOLE SODIUM 40 MG DR TABLET PO SCH (09:07)
[2023-10-18] MEDS: AmLODIPine BESYLATE 10 MG TABLET PO SCH (09:07)
[2023-10-18] MEDS: ASPIRIN 81 MG DR TABLET PO SCH (09:08)
[2023-10-18] MEDS: ATORVASTATIN CALCIUM 20 MG TABLET PO SCH (09:08)
[2023-10-18 12:00] VITALS: BP 127/71; PULSE 69; RESP 14; TEMP 98.1
[2023-10-18 16:00] VITALS: BP 140/65; PULSE 81; RESP 19; TEMP 98
[2023-10-18] MEDS ORDERED: SODIUM CHLORIDE 0.9% 250 ML IV ONE (16:05)
[2023-10-18 20:00] VITALS: BP 151/59; PULSE 83; RESP 26; TEMP 98.6
[2023-10-19] VITALS (8 sets, daily range): BP systolic 123–150; BP diastolic 72–89; PULSE 61–83; RESP 9–18; TEMP 98.1–99
[2023-10-19 06:01] LABS: BASOPHILS % (AUTO) 1.2 % (0.0-2.0); HEMATOCRIT 45.5 % (36-46); HEMOGLOBIN 14.9 g/dL (12.0-16.0); LYMPHOCYTES # (AUTO) 1.9 K/uL (1.0-4.8); LYMPHOCYTES % (AUTO) 26.8 % (22.0-44.0); MEAN CORPUSCULAR HEMOGLOBIN 28.3 pg (26.0-34.0); MEAN CORPUSCULAR HGB CONC 32.8 G/dL (31.0-37.0); MEAN CORPUSCULAR VOLUME 86 fL (80-100); MONOCYTES # (AUTO) 0.5 K/uL (0.1-1.0); MONOCYTES % (AUTO) 6.9 % (2.0-9.0); NEUTROPHILS # (AUTO) 4.5 K/uL (1.8-7.7); NEUTROPHILS % (AUTO) 64.1 % (40.0-70.0); PLATELET COUNT (AUTO) 266 K/uL (150-450); RED BLOOD CELL COUNT(AUTO) 5.26 MIL/uL (4.00-5.20); RED CELL DISTRIBUTION WIDTH 14.2 % (11.5-14.5); WHITE BLOOD COUNT (AUTO) 7.1 K/uL (4.5-11.0)
[2023-10-19 06:08] LABS: ALBUMIN 3.2 g/dL (3.4-5.0); BILIRUBIN,TOTAL 0.5 mg/dL (0.1-1.0); CALCIUM, TOTAL 9.6 mg/dL (8.8-10.5); CREATININE 1.96 mg/dL (0.60-1.30); POTASSIUM 4.3 mmol/L (3.5-5.1); TOTAL PROTEIN, SERUM 6.8 g/dL (6.4-8.2)
[2023-10-19] MEDS ORDERED: LORazepam 2 MG/ML VIAL IVP PRN (16:15)
[2023-10-19] MEDS ORDERED: SODIUM CHLORIDE 0.9% 250 ML IV ONE (16:56)
[2023-10-20 06:21] VITALS: BP 146/64; PULSE 63; RESP 18; TEMP 98.2
[2023-10-20 08:49] VITALS: BP 130/79; PULSE 88; RESP 18; TEMP 98.1
[2023-10-20 17:37] VITALS: BP 149/78; PULSE 75; RESP 20; TEMP 98.4
[2023-10-20 19:05] VITALS: BP 136/83; PULSE 86; RESP 20; TEMP 98.8
[2023-10-21 02:58] VITALS: BP 130/70; PULSE 56; RESP 20; TEMP 98
[2023-10-21 07:57] VITALS: BP 122/76; PULSE 64; RESP 16; TEMP 97.5
[2023-10-21 10:58] VITALS: BP 141/75; PULSE 63
== END 2023-10-21 12:52 | disposition home or self-care (01) | DRG 137 ==
LOC: EMS 03:44 → ICUN 06:09 → ICU 16:55 → 6N 10-19 18:38
PROVIDERS: ADMIT Hospitalist; ATTEND Hospitalist
PROC: 5A09357 Assistance with Respiratory Ventilation, Less than 24 Consecutive Hours, Continuous Positive Airway Pressure (ICD-10-PCS; principal; 2023-10-17)
DX: J15.69 Pneumonia due to other Gram-negative bacteria (principal); N17.0 Acute kidney failure with tubular necrosis; J96.90 Respiratory failure, unspecified, unspecified whether with hypoxia or hypercapnia; I16.1 Hypertensive emergency; I11.0 Hypertensive heart disease with heart failure; E78.5 Hyperlipidemia, unspecified; F19.10 Other psychoactive substance abuse, uncomplicated; R47.01 Aphasia; E11.9 Type 2 diabetes mellitus without complications; Z20.822 Contact with and (suspected) exposure to COVID-19; F17.210 Nicotine dependence, cigarettes, uncomplicated; I69.322 Dysarthria following cerebral infarction; Z91.148 Patient's other noncompliance with medication regimen for other reason; Z82.49 Family history of ischemic heart disease and other diseases of the circulatory system; Z87.01 Personal history of pneumonia (recurrent); Z87.440 Personal history of urinary (tract) infections; Z79.899 Other long term (current) drug therapy; Z79.82 Long term (current) use of aspirin; Z90.49 Acquired absence of other specified parts of digestive tract; Z98.891 History of uterine scar from previous surgery; I50.23 Acute on chronic systolic (congestive) heart failure
CPT/HCPCS: 0241U; 71045; 80053; 80307; 81003; 82550; 83880; 84484; 85025; 87081; 92610; 93005; 94640; 94660; 97116; 97162; 97166; 97530; 97535; 99291; J0360; J0456; J0696; J1644; J1940; J3490; J7050; 36415-L1; 36415-TC; J7613

== ENCOUNTER 2024-02-10 16:50 | Emergency (ER) | payer OTHER ==
[~2024-02-10] VITALS: Ht 165.1 cm; Wt 72.7 kg
[~2024-02-10 16:50] MED LIST changes: -AMLO-257 PO; -LEVO750T68 PO
[2024-02-10 16:55] VITALS: TEMP 97.7
[2024-02-10] MEDS ORDERED: ASPI-1198 PO (16:56)
[2024-02-10] MEDS ORDERED: CARV6.2534 PO (16:56)
[2024-02-10] MEDS ORDERED: ATOR40TA71 PO (16:56)
[2024-02-10] MEDS ORDERED: METF-1211 PO (16:56)
[2024-02-10] MEDS ORDERED: INSU100I56 SQ (16:56)
[2024-02-10] MEDS ORDERED: AMLO10TA55 PO (16:56)
[2024-02-10] MEDS ORDERED: AMOX250C4 PO (18:41)
[2024-02-10] MEDS: ACETAMINOPHEN 325 MG TABLET PO ONE (18:41)
[2024-02-10 18:51] VITALS: BP 168/99; PULSE 73; RESP 16
== END 2024-02-10 18:52 | disposition home or self-care (01) ==
LOC: EMS 16:51
DX: M79.672 Pain in left foot (principal); M79.671 Pain in right foot; M19.90 Unspecified osteoarthritis, unspecified site; E11.9 Type 2 diabetes mellitus without complications; I10 Essential (primary) hypertension; F17.210 Nicotine dependence, cigarettes, uncomplicated; F14.90 Cocaine use, unspecified, uncomplicated; Z59.00 Homelessness unspecified; Z90.49 Acquired absence of other specified parts of digestive tract; Z98.890 Other specified postprocedural states; Z76.0 Encounter for issue of repeat prescription
CPT/HCPCS: 82962; 99282; 99283

== ENCOUNTER 2024-02-14 12:01 | Emergency (ER) | payer OTHER ==
[~2024-02-14] VITALS: Ht 177.8 cm; Wt 81.8 kg
[~2024-02-14 12:01] MED LIST changes: -AMLO-258 PO; +AMLO10TA55 PO; +AMOX250C4 PO; +ASPI-1198 PO; -ASPI81TA87 PO; -ATOR20TA PO; +ATOR40TA71 PO; -CARV6 PO; +CARV6.2534 PO; -HYDR50TA36 PO; +INSU100I56 SQ; -ISOS20TA9 PO; -LOSA-382 PO; +METF-1211 PO
[2024-02-14 15:18] VITALS: BP 152/97; PULSE 94; RESP 18; TEMP 98.3
[2024-02-14] MEDS ORDERED: AMLO-258 PO (16:15)
[2024-02-14] MEDS ORDERED: METF-81 PO (16:15)
[2024-02-14] MEDS ORDERED: METF-1211 PO (16:16)
[2024-02-14] MEDS: IBUPROFEN 600 MG TABLET PO ONE (16:33)
== END 2024-02-14 16:42 | disposition home or self-care (01) ==
LOC: EMS 12:10
DX: S63.614A Unspecified sprain of right ring finger, initial encounter (principal); E11.9 Type 2 diabetes mellitus without complications; I11.0 Hypertensive heart disease with heart failure; I50.9 Heart failure, unspecified; J18.9 Pneumonia, unspecified organism; G89.29 Other chronic pain; K52.9 Noninfective gastroenteritis and colitis, unspecified; K80.20 Calculus of gallbladder without cholecystitis without obstruction; Z86.73 Personal history of transient ischemic attack (TIA), and cerebral infarction without residual deficits; Z87.440 Personal history of urinary (tract) infections; E86.0 Dehydration; F17.210 Nicotine dependence, cigarettes, uncomplicated; Z90.49 Acquired absence of other specified parts of digestive tract; Z59.00 Homelessness unspecified; Z98.890 Other specified postprocedural states; W01.0XXA Fall on same level from slipping, tripping and stumbling without subsequent striking against object, initial encounter; Y93.89 Activity, other specified; Y92.89 Other specified places as the place of occurrence of the external cause; Y99.8 Other external cause status
CPT/HCPCS: 82962; 99283

== ENCOUNTER 2024-03-24 12:53 | Emergency (ER) | payer OTHER ==
[~2024-03-24] VITALS: Ht 177.8 cm; Wt 81.8 kg
[~2024-03-24 12:53] MED LIST changes: +AMLO-258 PO
[2024-03-24 12:57] VITALS: BP 167/86; PULSE 87; RESP 19; TEMP 98.3
[2024-03-24 13:16] LABS: GLUCOMETER DEV NAME(LOC) ER.7; GLUCOSE,POINT OF CARE 115 MG/DL (70-110)
[2024-03-24] MEDS ORDERED: MICO45CR76 VG (14:16)
== END 2024-03-24 14:30 | disposition home or self-care (01) ==
LOC: EMS 13:01
DX: B37.31 Acute candidiasis of vulva and vagina (principal); E11.9 Type 2 diabetes mellitus without complications; M19.90 Unspecified osteoarthritis, unspecified site; I11.0 Hypertensive heart disease with heart failure; F17.210 Nicotine dependence, cigarettes, uncomplicated; F14.90 Cocaine use, unspecified, uncomplicated; Z90.49 Acquired absence of other specified parts of digestive tract; Z91.119 Patient's noncompliance with dietary regimen due to unspecified reason; Z98.890 Other specified postprocedural states; Z59.00 Homelessness unspecified
CPT/HCPCS: 82962; 99282

== ENCOUNTER 2024-04-20 12:20 | Emergency (ER) | payer OTHER ==
[~2024-04-20] VITALS: Ht 157.5 cm; Wt 100.0 kg
[~2024-04-20 12:20] MED LIST changes: +MICO45CR76 VG
[2024-04-20 20:02] VITALS: BP 195/95; PULSE 85; RESP 18; TEMP 98.2
[2024-04-20] MEDS: CefTRIAXone SODIUM 1 GM/VIAL IM ONE (20:35)
[2024-04-20] MEDS: AZITHROMYCIN 500 MG TABLET PO ONE (20:35)
[2024-04-20] MEDS: LIDOCAINE/PF 1% 2 ML VIAL IM ONE (20:36)
== END 2024-04-20 21:14 | disposition home or self-care (01) ==
LOC: EMS 12:20
DX: N76.0 Acute vaginitis (principal); M19.90 Unspecified osteoarthritis, unspecified site; E11.9 Type 2 diabetes mellitus without complications; G89.29 Other chronic pain; F17.210 Nicotine dependence, cigarettes, uncomplicated; F14.90 Cocaine use, unspecified, uncomplicated; Z59.00 Homelessness unspecified; Z90.49 Acquired absence of other specified parts of digestive tract; Z98.890 Other specified postprocedural states; I11.0 Hypertensive heart disease with heart failure
CPT/HCPCS: 99284; 82962; 87210; 96372; J0456; J0696; J3490

== ENCOUNTER 2024-06-05 05:32 | Emergency (ER) | payer OTHER ==
[~2024-06-05] VITALS: Ht 170.2 cm; Wt 90.0 kg
[~2024-06-05 05:32] MED LIST changes: -AMLO-258 PO; -AMOX250C4 PO; -MICO45CR76 VG
[2024-06-05 05:42] VITALS: TEMP 99
[2024-06-05] MEDS: AmLODIPine BESYLATE 10 MG TABLET PO ONE (07:02)
[2024-06-05] MEDS: CARVEDILOL 6.25 MG TABLET PO ONE (07:02)
[2024-06-05] MEDS: ACETAMINOPHEN 325 MG TABLET PO ONE (07:02)
[2024-06-05 08:34] VITALS: BP 156/134; PULSE 67; RESP 18; O2SAT 96
== END 2024-06-05 09:21 | disposition home or self-care (01) ==
LOC: EMS 05:32
DX: R51.9 Headache, unspecified (principal); I11.0 Hypertensive heart disease with heart failure; I50.9 Heart failure, unspecified; E11.9 Type 2 diabetes mellitus without complications; F17.210 Nicotine dependence, cigarettes, uncomplicated; Z79.4 Long term (current) use of insulin
CPT/HCPCS: 82962; 99284; Z7502; Z7610

== ENCOUNTER 2024-06-08 11:29 | Emergency (ER) | payer OTHER ==
[~2024-06-08] VITALS: Ht 170.2 cm; Wt 81.8 kg
[2024-06-08 11:38] VITALS: BP 154/99; PULSE 72; RESP 18; TEMP 98.5; O2SAT 97
[2024-06-08 11:51] LABS: GLUCOMETER DEV NAME(LOC) ER.7; GLUCOSE,POINT OF CARE 161 MG/DL (70-110)
[2024-06-08] MEDS ORDERED: DIPH-1243 PO (12:02)
[2024-06-08] MEDS: DiphenhydrAMINE HCL 25 MG CAPSULE PO ONE (12:14)
== END 2024-06-08 12:26 | disposition home or self-care (01) ==
LOC: EMS 11:29
DX: L29.9 Pruritus, unspecified (principal); M19.90 Unspecified osteoarthritis, unspecified site; E11.9 Type 2 diabetes mellitus without complications; I11.0 Hypertensive heart disease with heart failure; F17.210 Nicotine dependence, cigarettes, uncomplicated; Z90.49 Acquired absence of other specified parts of digestive tract; F14.90 Cocaine use, unspecified, uncomplicated; Z98.890 Other specified postprocedural states; Z59.00 Homelessness unspecified
CPT/HCPCS: 82962; 99282

== ENCOUNTER 2024-06-21 12:10 | Emergency (ER) | payer OTHER ==
[~2024-06-21] VITALS: Ht 170.2 cm; Wt 72.7 kg
[~2024-06-21 12:10] MED LIST changes: +DIPH-1243 PO
[2024-06-21 12:20] VITALS: BP 178/91; PULSE 71; RESP 18; TEMP 98.7; O2SAT 99
[2024-06-21] MEDS ORDERED: METF-1211 PO (15:41)
[2024-06-21] MEDS ORDERED: AMLO10TA55 PO (15:41)
[2024-06-21] MEDS ORDERED: CARV6.2534 PO (15:41)
[2024-06-21] MEDS: MICONAZOLE NITRATE 2% 30 GM CREAM TP ONE (16:08)
== END 2024-06-21 16:28 | disposition home or self-care (01) ==
LOC: EMS 12:10
DX: B37.31 Acute candidiasis of vulva and vagina (principal); M19.90 Unspecified osteoarthritis, unspecified site; E11.40 Type 2 diabetes mellitus with diabetic neuropathy, unspecified; G89.29 Other chronic pain; I11.0 Hypertensive heart disease with heart failure; F17.210 Nicotine dependence, cigarettes, uncomplicated; F14.90 Cocaine use, unspecified, uncomplicated; Z59.00 Homelessness unspecified; Z76.0 Encounter for issue of repeat prescription; Z79.82 Long term (current) use of aspirin; Z90.49 Acquired absence of other specified parts of digestive tract; Z98.890 Other specified postprocedural states
CPT/HCPCS: 99282; Z7502; Z7610

== ENCOUNTER 2024-08-07 13:20 | Emergency (ER) | payer OTHER ==
[~2024-08-07] VITALS: Ht 167.6 cm; Wt 68.2 kg
[2024-08-07 13:27] VITALS: TEMP 97.9
[2024-08-07] MEDS: ACETAMINOPHEN 500 MG TABLET PO ONE (15:28)
[2024-08-07] MEDS: AmLODIPine BESYLATE 10 MG TABLET PO ONE (15:28)
[2024-08-07 16:00] VITALS: BP 181/102; PULSE 88; RESP 18; O2SAT 97
== END 2024-08-07 17:51 | disposition left against medical advice (07) ==
LOC: EMS 13:30
DX: M79.671 Pain in right foot (principal); M79.672 Pain in left foot; I11.0 Hypertensive heart disease with heart failure; I50.9 Heart failure, unspecified; E11.59 Type 2 diabetes mellitus with other circulatory complications; F17.210 Nicotine dependence, cigarettes, uncomplicated; Z86.73 Personal history of transient ischemic attack (TIA), and cerebral infarction without residual deficits; Z87.440 Personal history of urinary (tract) infections; Z90.49 Acquired absence of other specified parts of digestive tract; Z59.00 Homelessness unspecified
CPT/HCPCS: 99283

== ENCOUNTER 2024-08-28 09:34 | Emergency (ER) | payer OTHER ==
[~2024-08-28] VITALS: Ht 175.3 cm; Wt 107.5 kg
[~2024-08-28 09:34] MED LIST changes: -AMLO10TA55 PO; -ASPI-1198 PO; -ATOR40TA71 PO; -CARV6.2534 PO; -DIPH-1243 PO; -INSU100I56 SQ
[2024-08-28 09:42] VITALS: TEMP 98.2
[2024-08-28] MEDS: AmLODIPine BESYLATE 10 MG TABLET PO ONE (12:49)
[2024-08-28] MEDS: PredniSONE 20 MG TABLET PO ONE (13:14)
[2024-08-28] MEDS: DiphenhydrAMINE HCL 25 MG CAPSULE PO ONE (13:14)
[2024-08-28] MEDS: CloNIDine HCL 0.1 MG TABLET PO ONE ×2 (13:43→16:04)
[2024-08-28] MEDS: HYDROCHLOROTHIAZIDE 25 MG TABLET PO ONE (13:44)
[2024-08-28 15:22] VITALS: BP 180/122; PULSE 83; RESP 18; O2SAT 98
[2024-08-28] MEDS ORDERED: CARV6.2534 PO (15:26)
[2024-08-28] MEDS ORDERED: AMLO10TA55 PO (15:26)
[2024-08-28] MEDS ORDERED: HYDR25TA2 PO (15:26)
[2024-08-28] MEDS ORDERED: METF-444 PO (15:26)
[2024-08-28] MEDS: PERMETHRIN 5% 60 GM CREAM TP ONE (16:04)
== END 2024-08-28 16:16 | disposition home or self-care (01) ==
LOC: EMS 09:40
DX: R21 Rash and other nonspecific skin eruption (principal); E11.40 Type 2 diabetes mellitus with diabetic neuropathy, unspecified; F20.9 Schizophrenia, unspecified; I11.0 Hypertensive heart disease with heart failure; I50.9 Heart failure, unspecified; F17.210 Nicotine dependence, cigarettes, uncomplicated; Z79.84 Long term (current) use of oral hypoglycemic drugs; Z87.440 Personal history of urinary (tract) infections; Z90.49 Acquired absence of other specified parts of digestive tract; Z59.00 Homelessness unspecified; Z79.899 Other long term (current) drug therapy
CPT/HCPCS: 99284; 82962; J7512

== ENCOUNTER 2025-07-25 16:27 | Emergency (ER) | payer OTHER ==
[~2025-07-25] VITALS: Ht 167.6 cm; Wt 110.0 kg
[~2025-07-25 16:27] MED LIST changes: +AMLO10TA55 PO; +CARV6.2534 PO; +HYDR25TA2 PO; -METF-1211 PO; +METF-444 PO
[2025-07-25] MEDS ORDERED: FLUC150T61 PO (19:54)
[2025-07-25] MEDS: FLUCONAZOLE 150 MG TABLET PO ONE (20:04)
[2025-07-25 20:24] VITALS: BP 163/99; PULSE 71; RESP 18; TEMP 97.9; O2SAT 98
== END 2025-07-25 20:06 | disposition home or self-care (01) ==
LOC: EMS 16:43
DX: B37.31 Acute candidiasis of vulva and vagina (principal); M19.90 Unspecified osteoarthritis, unspecified site; E11.59 Type 2 diabetes mellitus with other circulatory complications; E11.40 Type 2 diabetes mellitus with diabetic neuropathy, unspecified; F20.9 Schizophrenia, unspecified; G89.29 Other chronic pain; I11.0 Hypertensive heart disease with heart failure; F17.210 Nicotine dependence, cigarettes, uncomplicated; F14.90 Cocaine use, unspecified, uncomplicated; Z59.00 Homelessness unspecified; Z79.84 Long term (current) use of oral hypoglycemic drugs; Z79.899 Other long term (current) drug therapy; Z87.01 Personal history of pneumonia (recurrent); Z90.49 Acquired absence of other specified parts of digestive tract
CPT/HCPCS: 99283